=== PATIENT | female | born 1980 | race Caucasian/White ===

== ENCOUNTER 2017-12-27 09:59 | Day surgery (SDC) | payer OTHER ==
[2017-12-27 11:48] VITALS: BP 134/79; PULSE 76; RESP 16; TEMP 99.1; O2SAT 100
--- NOTE | 2017-12-27 13:37 | RADRPT ---
EXAM DATE: 12/27/2017 1:22 PM EDT AGE/SEX: 37 years / Female INDICATIONS: Cervical lymphadenopathy. CLINICAL DATA: This is the patient's initial encounter. Patient reports that signs and symptoms have been present for > 1 year and indicates a pain score of 0/10. MEDICAL/SURGICAL HISTORY: . . COMPARISON: No prior [facility] exams available for comparison. No external comparison. FINDINGS: Patient presents for biopsy of borderline enlarged cervical lymph nodes. Evaluation of the cervical soft tissues demonstrates a subcentimeter hypoechoic mass likely reflectin g a subcutaneous node measuring up to 9 mm on the right. There is a 1.6 x 0.5 x 0.5 cm hypoechoic mas s with central echogenicity in the right submental region which appears to correspond to a similar si zed mass noted on prior ultrasound report Reported enlarging left 12 mm cervical node is not demonstr ated on current exam.. Unfortunately, the previous ultrasound exam is not available for review for di rect comparison. I had an extended conversation with the patient who was quite apprehensive about proceeding with fine -needle aspiration. She would like to further discuss her options prior to proceeding with biopsy. CONCLUSION: 1. Cervical lymph node evaluation, as above. Electronically signed by: Get Perez MD 12/27/2017 1:36 PM EDT
== END 2017-12-27 17:21 | disposition home or self-care (01) ==
LOC: HRAD 09:59 → HRIP 10:03 → HRAD 17:21
DX: R59.0 Localized enlarged lymph nodes (principal)